=== PATIENT | female | born 1985 | race African-American/Black ===

== ENCOUNTER 2017-11-18 16:18 | Emergency (ER) | payer SELFPAY ==
[2017-11-18] MEDS ORDERED: Acetaminophen 500 MG TAB ONE (18:00)
== END 2017-11-18 19:00 | disposition home or self-care (01) ==
LOC: ERS 16:18
DX: B34.9 Viral infection, unspecified (principal); F17.210 Nicotine dependence, cigarettes, uncomplicated
CPT/HCPCS: 99283

== ENCOUNTER 2018-07-14 15:24 | Emergency (ER) | payer SELFPAY | END 2018-07-14 16:05 | disposition home or self-care (01) | LOC: ERS 15:24 | DX: K02.9 Dental caries, unspecified (principal); K03.81 Cracked tooth; F17.210 Nicotine dependence, cigarettes, uncomplicated; Z71.6 Tobacco abuse counseling | CPT/HCPCS: 99406 ==